=== PATIENT | male | born 1980 | race Native Hawaiian/Other Pacific Islander ===

== ENCOUNTER 2016-05-14 22:13 | Emergency (ER) | payer SELFPAY ==
[2016-05-14 23:50] LABS: Basophils % (Auto) 0.4 % (0.0-1.8); Eosinophils % (Auto) 1.7 % (0.0-4.3); Hematocrit 42.1 % (35.5-45.6); Hemoglobin 14.2 gm/dl (11.8-15.2); Mean Corpuscular HGB Conc 34 % (32-34); Mean Corpuscular Hemoglobin 31 pg (28-32); Mean Corpuscular Volume 93 fl (84-94); Platelet Count 234 K/mm3 (140-440); Red Blood Count 4.54 M/mm3 (3.65-5.03); Red Cell Distribution Width 13.5 % (13.2-15.2); White Blood Count 11.2 K/mm3 (4.5-11.0)
[2016-05-14 23:51] LABS: Bilirubin,Urine NEG (Negative); Blood,Urine NEG (Negative); Ketones,Urine NEG (Negative); Leukocyte Esterase,Urine NEG (Negative); Nitrite,Urine NEG (Negative); Protein,Urine <15 mg/dL mg/dL (Negative); RBC,Urine < 1.0 /HPF (0.0-6.0); Urobilinogen,Urine < 2.0 mg/dL (<2.0)
[2016-05-14 23:53] LABS: Alanine Aminotransferase 50 units/L (7-56); Albumin 4.3 g/dL (3.9-5); Albumin/Globulin Ratio 1.5 %; Alkaline Phosphatase 90 units/L (35-129); Anion Gap 18 mmol/L; BUN/Creatinine Ratio 21.42; Bilirubin,Total 0.3 mg/dL (0.1-1.2); Blood Urea Nitrogen 15 mg/dL (9-20); Calcium 8.9 mg/dL (8.4-10.2); Carbon Dioxide 24 mmol/L (22-30); Chloride 101.5 mmol/L (98-107); Glucose 96 mg/dL (75-100); Lipase 29 units/L (13-60); Potassium 4.3 mmol/L (3.6-5.0); Sodium 139 mmol/L (137-145); Total Protein 7.1 g/dL (6.3-8.2)
[2016-05-15] MEDS ORDERED: PEPCID IV ONE (07:15)
[2016-05-15] MEDS ORDERED: TORADOL IV ONE (07:15)
--- NOTE | 2016-05-15 07:15 | Emergency Department Report ---
ED General Adult HPI - General Chief complaint: Abdominal Pain Stated complaint: ABD PAIN Time Seen by Provider: 05/15/16 07:05 Source: patient, RN notes reviewed Mode of arrival: Ambulatory Limitations: No Limitations - History of Present Illness Initial comments: This is a 35-year-old male. He is previously unknown to me. He does not have a primary care doctor. He has no history of abdominal surgeries. He has no chronic medical conditions. He presents to the ER with abdominal pain. The abdominal pain is epigastric, left side of the flank, intermittently moves to the left lower quadrant. It has been present for 8 days. It decreases with ibuprofen. It increases with walking and physical exertion. There is no nausea , vomiting or diarrhea. There is no testicular pain. No irritative or obstructive urinary symptoms. There is no chest pain or shortness of breath. There is no leg pain. There is no leg swelling. No recent travel greater than 4 hours. 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 -: Gradual Location: abdomen Radiation: abdomen, periumbillical, flank Severity scale (0 -10): 8 Quality: aching Consistency: intermittent Improves with: medication, rest Worsens with: movement Associated Symptoms: denies other symptoms. denies: confusion, chest pain, cough, diaphoresis, fever/chills, headaches, loss of appetite, malaise, rash, seizure, shortness of breath, syncope, weakness - Related Data Previous Rx's Medication Instructions Recorded Last Taken Type Dicyclomine [Bentyl] 10 mg PO QID PRN #20 capsule 05/15/16 Unknown Rx Famotidine [Pepcid] 20 mg PO QDAY #30 tablet 05/15/16 Unknown Rx Ibuprofen [Motrin] 600 mg PO Q8H PRN #30 tablet 05/15/16 Unknown Rx Allergies Allergy/AdvReac Type Severity Reaction Status Date / Time No Known Allergies Allergy Unverified 05/14/16 22:47 ED Review of Systems ROS: Stated complaint: ABD PAIN Other details as noted in HPI Constitutional: denies: fever, malaise Eyes: denies: vision change ENT: denies: epistaxis Respiratory: denies: cough Cardiovascular: denies: chest pain Gastrointestinal: abdominal pain Genitourinary: denies: urgency, dysuria Musculoskeletal: denies: back pain Skin: denies: rash, lesions Neurological: denies: weakness Psychiatric: denies: anxiety, depression ED Past Medical Hx - Past Medical History Previous Medical History?: No - Surgical History Past Surgical History?: No - Social History Smoking Status: Never Smoker Substance Use Type: None - Medications Home Medications: Home Medications Medication Instructions Recorded Confirmed Last Taken Type Dicyclomine [Bentyl] 10 mg PO QID PRN #20 capsule 05/15/16 Unknown Rx Famotidine [Pepcid] 20 mg PO QDAY #30 tablet 05/15/16 Unknown Rx Ibuprofen [Motrin] 600 mg PO Q8H PRN #30 tablet 05/15/16 Unknown Rx ED Physical Exam - General Limitations: No Limitations General appearance: alert, in no apparent distress - Head Head exam: Present: atraumatic, normocephalic - Eye Eye exam: Present: normal appearance, EOMI. Absent: nystagmus - ENT ENT exam: Present: normal exam, normal orophraynx, mucous membranes moist, normal external ear exam - Neck Neck exam: Present: normal inspection, full ROM. Absent: tenderness, meningismus - Respiratory Respiratory exam: Present: normal lung sounds bilaterally. Absent: respiratory distress, wheezes, rales, rhonchi, stridor, chest wall tenderness - Cardiovascular Cardiovascular Exam: Present: regular rate, normal rhythm, normal heart sounds. Absent: bradycardia, tachycardia, irregular rhythm, systolic murmur, diastolic murmur, rubs, gallop - GI/Abdominal GI/Abdominal exam: Present: soft, normal bowel sounds. Absent: distended, tenderness, guarding, rebound, rigid, pulsatile mass - exam: Present: normal inspection. Absent: testicular tenderness External exam: Present: normal external exam, other (there is no testicular tenderness. There is normal cremasteric reflex bilaterally. There is normal testicular lie bilaterally.) - Extremities Exam Extremities exam: Present: normal inspection, full ROM, normal capillary refill. Absent: tenderness, pedal edema, joint swelling, calf tenderness - Back Exam Back exam: Present: normal inspection, full ROM. Absent: tenderness, CVA tenderness (R), CVA tenderness (L), muscle spasm, paraspinal tenderness, vertebral tenderness - Neurological Exam Neurological exam: Present: alert, oriented X3, normal gait, other (Extraocular movements intact. Tongue midline. No facial droop. Facial sensation intact to light touch in the V1, V2, V3 distribution bilaterally. 5 and 5 strength in 4 extremities.. Sensation is intact to light touch in 4 extremities.). Absent : motor sensory deficit - Psychiatric Psychiatric exam: Present: normal affect, normal mood - Skin Skin exam: Present: warm, dry, intact, normal color. 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 There are no pulmonary embolus or DVT risk factors, he is low risk by well's criteria , and he is perc negative. Laboratory studies are unremarkable, physical exam is unremarkable, belly is nontender. I doubt acute surgical process. Laboratory studies including creatinine kinase are ordered, noncontrast CT scan of the abdomen and pelvis ordered. The patient will be treated symptomatically. Reevaluation #2: 05/15/16 10:17 CT scan is negative. Patient reports that he feels improved. Belly soft on repeat examination. Vital signs remained stable. Patient will be discharged. ED Medical Decision Making - Lab Data Result diagrams: 05/14/16 23:09 05/14/16 23:09 Vital Signs 05/14/16 05/14/16 05/15/16 22:17 22:45 06:15 Temperature 98 F 98 F Pulse Rate 62 62 48 L Respiratory 18 18 14 Rate Blood Pressure 124/80 Blood Pressure 124/80 116/77 [Right] O2 Sat by Pulse 98 100 99 Oximetry Lab Results 05/14/16 05/14/16 05/14/16 Range/Units 23:09 23:09 Unknown WBC 11.2 H (4.5-11.0) K/mm3 RBC 4.54 (3.65-5.03) M/mm3 Hgb 14.2 (11.8-15.2) gm/dl Hct 42.1 (35.5-45.6) % MCV 93 (84-94) fl MCH 31 (28-32) pg MCHC 34 (32-34) % RDW 13.5 (13.2-15.2) % Plt Count 234 (140-440) K/mm3 Lymph % (Auto) 29.8 (13.4-35.0) % [place] % (Auto) 8.3 H (0.0-7.3) % Eos % (Auto) 1.7 (0.0-4.3) % Baso % (Auto) 0.4 (0.0-1.8) % Lymph # 3.3 (1.2-5.4) K/mm3 [place] # 0.9 H (0.0-0.8) K/mm3 Eos # 0.2 (0.0-0.4) K/mm3 Baso # 0.0 (0.0-0.1) K/mm3 Seg Neutrophils % 59.8 (40.0-70.0) % Seg Neutrophils # 6.7 (1.8-7.7) K/mm3 Sodium 139 (137-145) mmol/L Potassium 4.3 (3.6-5.0) mmol/L Chloride 101.5 (98-107) mmol/L Carbon Dioxide 24 (22-30) mmol/L Anion Gap 18 mmol/L BUN 15 (9-20) mg/dL Creatinine 0.7 L (0.8-1.5) mg/dL Estimated GFR > 60 ml/min BUN/Creatinine Ratio 21.42 % Glucose 96 (75-100) mg/dL Calcium 8.9 (8.4-10.2) mg/dL Total Bilirubin 0.3 (0.1-1.2) mg/dL AST 36 (5-40) units/L ALT 50 (7-56) units/L Alkaline Phosphatase 90 (35-129) units/L Total Protein 7.1 (6.3-8.2) g/dL Albumin 4.3 (3.9-5) g/dL Albumin/Globulin Ratio 1.5 % Lipase 29 (13-60) units/L Urine Color Straw (Yellow) Urine Turbidity Clear (Clear) Urine pH 6.0 (5.0-7.0) Ur Specific [place] 1.006 (1.003-1.030) Urine Protein <15 mg/dl (Negative) mg/dL Urine Glucose (UA) Neg (Negative) mg/dL Urine Ketones Neg (Negative) mg/dL Urine Blood Neg (Negative) Urine Nitrite Neg (Negative) Urine Bilirubin Neg (Negative) Urine Urobilinogen < 2.0 (<2.0) mg/dL Ur Leukocyte Esterase Neg (Negative) Urine WBC (Auto) 0.0 (0.0-6.0) /HPF Urine RBC (Auto) < 1.0 (0.0-6.0) /HPF - Radiology Data Radiology results: report reviewed, image reviewed Noncontrast CT scan of the abdomen and pelvis is negative for acute disease. Critical care attestation.: If time is entered above; I have spent that time in minutes in the direct care of this critically ill patient, excluding procedure time. ED Disposition Clinical Impression: Abdominal pain Disposition: DISCHARGED TO HOME OR SELFCARE Is pt being admited?: No Does the pt Need Aspirin: No Condition: Stable Instructions: Abdominal Pain (ED) Additional Instructions: Take the medications as needed for pain. Follow up with a primary care doctor within the next 2-3 weeks. Return to the ER right away with new pain, worsened pain, migration of pain, fevers or chills inability to tolerate liquid feeds. Dr. Jacques is a local primary care doctor. [place] los medicamentos necesarios para el dolor. Seguimiento con un mdico de atencin primaria dentro de las prximas 2-3 semanas. Vuelva al ER de inmediato con dolor nuevo, dolor empeorado, migracin de dolor, fiebre o escalofros incapacidad para tolerar alimentos lquidos. El Dr. Jacques es un mdico local de atencin primaria. Prescriptions: Dicyclomine [Bentyl] 10 mg PO QID PRN #20 capsule PRN Reason: Pain Famotidine [Pepcid] 20 mg PO QDAY #30 tablet Ibuprofen [Motrin] 600 mg PO Q8H PRN #30 tablet PRN Reason: Pain Referrals: PRIMARY CARE, [Primary Care Provider] - 3-5 Days TRAVON JACQUES MD [Staff Physician] - 3-5 Days
--- NOTE | 2016-05-15 09:27 | Cat Scan Report ---
CT OF THE ABDOMEN AND PELVIS WITHOUT CONTRAST HISTORY: Left lower quadrant abdominal pain. TECHNIQUE: Helical CT without contrast. Sagittal and coronal reformatted images. FINDINGS: Within the limits of a noncontrast exam, the abdominal and pelvic viscera are within normal limits. The liver, biliary system, pancreas, spleen, kidneys, adrenal glands and bladder are unremarkable. The bowel loops are normal caliber and wall thickness. Normal appendix. The aorta is normal caliber. No ascites, bulky adenopathy or inflammatory changes. The lung bases are clear. Normal heart size. No suspicious bony lesion. IMPRESSION: Unremarkable noncontrast CT of the abdomen and pelvis.
[2016-05-15 10:35] VITALS: BP 116/87
== END 2016-05-15 10:35 | disposition home or self-care (01) ==
LOC: ED 22:13
DX: R10.13 Epigastric pain (principal)
CPT/HCPCS: 36415; 74176; 80053; 81001; 82550; 83690; 85025; 96374; 96375; 99284; J1885